=== PATIENT | female | born 1935 | race American Indian/Alaskan Native ===

== ENCOUNTER → 2018-06-21 | Outpatient (CLI) | payer OTHER, BC ==
[~2018-06-21] VITALS: Ht 172.7 cm; Wt 92.4 kg
[~2018-06-21] MED LIST: ADULT LOW DOSE81 MG PO; APAP500; BIOTIN10 MG PO; CELEBREX 200 M200 MG PO; CELEXA PO; COZAAR 25 MG TA25 M1 PO; COZAAR 50 MG TA50 M2 PO; CYMBALTA60 MG PO; DIOVAN40 MG PO; FISH OIL 1,0001 EAC5 PO; FLEXERIL PO; GLUCOPHAGE XR500 MG PO; HYDROCHLOROTHIA25 M1 PO; HYDROCODON-ACE1 EAC5 PO; HYDROCODON-ACE1 EAC7 PO; HYDROCODON-ACE1 EACH PO; HYDROCODONE-AP1 EAC6 PO; LIDODERM1 EACH TRANSDERM; MAXIDE PO; MAXZIDE-25 MG1 EACH PO; MEDROL DOSPAK21 TA1 PO; MEDROLDOSEPACK PO; MELOXICAM15 MG PO; MULTIVITAMINS; NORCO 5-325 TA1 EACH PO; NORFLEX100 MG PO; PERCOCET 10-321 EAC1 PO; PERCOCET 5-3251 EACH PO; TRAMADOL 50 MG50 MG PO
[2018-06-21 13:21] VITALS: BP 133/101
== END | disposition home or self-care (01) ==
LOC: PAIN 11:46
DX: M79.18 Myalgia, other site (principal); D64.9 Anemia, unspecified; Z88.8 Allergy status to other drugs, medicaments and biological substances; Z79.899 Other long term (current) drug therapy; Z90.710 Acquired absence of both cervix and uterus; Z98.890 Other specified postprocedural states

== ENCOUNTER → 2018-07-31 | Outpatient (CLI) | payer OTHER, BC ==
[~2018-07-31] VITALS: Ht 172.7 cm; Wt 92.8 kg
[~2018-07-31] MED LIST changes: +HYDROCODON-ACE1 EAC8 PO; +VOLTAREN50 MG PO
--- NOTE | ~2018-07-31 | HPC ---
[facility] [address] [place] [address] PAIN MANAGEMENT CONSULTATION Name: FLOR DOWLING Room #: REG Jose De Jesus Toro.#: [id number] Admission: 07/31/18 Attend Phys: Danna Castro MD Discharge: Date of : 39 Report #: [id number] THIS REPORT FOR: //name// CC: Danna Castro Physician staff BLANCA CARRASQUILLO DATE OF SERVICE: 07/31/2018 CHIEF COMPLAINT: Back pain was helped for about one week or so after the injection. HISTORY OF PRESENT ILLNESS: The patient is an 83-year-old female who has been followed in the pain clinic in the past because of chronic pain. She has had back problems. She has had myofascial pain in the lower portion of her back. She underwent trigger point injections to the affected area at the last visit. She noticed pain improvement for about a week. As you may recall, she has lost a significant amount of weight. Over the last few years, she has lost 100 pounds. She states that she continues to have pain, which is problematic at this point, some pain in the back area as well as some pain in the right groin area. Notes that sometimes after sitting for a prolonged period of time she notes some pain and discomfort. She is trying to net an item for a grandchild. Finds that she is unable to ____ for very long before onset of pain and discomfort. She has returned to the pain clinic for evaluation. She was given hydrocodone 7.5 mg tablets. Notes noticed that was beneficial to help with the pain. ALLERGIES: MORPHINE. CURRENT MEDICATIONS: Cymbalta and Lidoderm patches. PAIN CLINIC ASSESSMENT/PQRS: 1. History of osteoarthritis. The patient does have some arthritic changes in the lower portion of her back. It is not being treated for rheumatoid arthritis. 2. Height 5 feet 8 inches, weight 204 pounds, BMI is F31.81. 3. Vital signs: Blood pressure 155/87, pulse 83, respiratory rate 20, room air saturation is 100%. 4. Pain intensity /. 5. Fall risk. The patient has not fallen in the last 3 months. 6. Blood thinner. The patient is not on a blood thinning medication. 7. Hypertension. The patient has been treated for hypertension. 8. Opioid greater than 6 weeks. Risk assessment tool, low for opioid use and /. 9. Functional assessment tool 61/70. 10. Recreational drug use. The patient denies use of recreational drugs. [facility] [address] [place] [address] PAIN MANAGEMENT CONSULTATION Name: FLOR DOWLING [facility] [id number] Admission: 07/31/18 Attend Phys: Danna Castro MD Discharge: Date of : 37 Report #: [id number] 11. Tobacco: The patient has never smoked. 12. Alcohol: The patient denies use of alcoholic beverages. PHYSICAL EXAMINATION: GENERAL: The patient is a well-developed, well-nourished white female. She is obese. She appears her stated age. She is alert and oriented x 3. Her daughter is present. HEENT: Normocephalic, atraumatic. Extraocular eye muscles intact. Sclerae nonicteric. Mucous membranes are moist. NECK: Without adenopathy or JVD. MUSCULOSKELETAL: Upper extremity muscle strength is judged to be 5-/5 for the major muscle groups in the upper extremity. The patient without significant scoliosis, kyphosis or lordosis. The patient has a significant amount of skin laxity secondary to the great weight loss of over 100 pounds. 1. The patient has some pain and discomfort in the lower portion of her back near the right lower buttocks area. She has findings of some highly movable nodules/items on her skin. There is easily compressed. The easily mobile under the skin. They feel and seem to be as though they would be consistent with lipomas. This is one of the areas where the patient is having pain and discomfort in her back. Lower extremity muscle strength is judged to be 5-/5 for the lower extremities. IMPRESSION: 1. Back pain/myofascial pain helped with trigger points. 2. Three distinctive highly mobile masses in the right buttocks area (seen consistent with growing lipomas. 3. History of right sciatica. 4. History of insulin-dependent diabetes mellitus. 5. Anemia. 6. Hypertension. 7. Gallbladder disease. 7. Kidney disease. 8. Thyroid disease. 9. Stomach problems/Delonte en-Y. 10. Joint disease/arthritis in the knees and shoulders. RECOMMENDATION: At this juncture, the patient has noted some improvement with trigger point injections. That portion of her pain seemed to be myofascial. She does have pain and discomfort in the area of the highly mobile some nodules in the right low back area, which are tense feel as though they are highly like are highly likely to be lipomas. We have had a number of patients who have pain and discomfort and areas where lipomas were located. This area is where the patient is experiencing pain and discomfort. I think that she would gleaned significant improvement with the removal of lipomas. The patient also feels that the hydrocodone has been helpful. We will provide her with 2 hydrocodone tablets daily. She will call us in the near future. [address] [address] PAIN MANAGEMENT CONSULTATION Name: FLOR DOWLING Room #: REG JAGDEEP Gomez#: [id number] Admission: 07/31/18 Attend Phys: Danna Castro MD Discharge: Date of : 37 Report #: [id number] We would like to thank you for letting us participate in her care. We hope she continues to improve. By: [id number] Danna Castro MD /nt
[2018-07-31 09:03] VITALS: BP 155/87
--- NOTE | 2018-07-31 09:23 | NUR ---
Pain Clinic Assessment: 1. History of Osteoarthritis: Not Applicable History of Rheumatoid Arthritis: Not Applicable 2. Height: 5 ft. 8 in. 172.7 cm. Weight: 204.6 lb. oz. 92.806 kg. Patient's BMI: 31.1 3. Vital Signs: BP: 155/87 Pulse: 83 Resp: 20 Temp: 02 Sat: 100 ECG Mon: 4. Pain Intensity: 3-5 5. Fall Risk: Dizziness: N Needs help standing or walking: Y Fallen in the last 3 months: Y Fall risk comments: 6. Patient on Blood Thinner: None 7. History of Hypertension: Y 8. Opioid Therapy greater than 6 weeks: N Opiate Contract Signed: 9. Risk Assessment Tool Provided: LOW RISK 2/3 10. Functional Assessment Tool: 65/70 11. Recreational Drug Use: Never Drug Type: Tobacco Use: Never Smoker Tobacco Type: Amount or Packs/day: How Many Years: Alcohol Use: No Frequency: Quant:
== END ==
LOC: PAIN 07-26 13:15
DX: M17.0 Bilateral primary osteoarthritis of knee (principal); M54.41 Lumbago with sciatica, right side; M19.011 Primary osteoarthritis, right shoulder; M19.012 Primary osteoarthritis, left shoulder; G89.29 Other chronic pain; M79.18 Myalgia, other site; I10 Essential (primary) hypertension; D64.9 Anemia, unspecified; E11.9 Type 2 diabetes mellitus without complications; K82.9 Disease of gallbladder, unspecified; N28.9 Disorder of kidney and ureter, unspecified; E07.9 Disorder of thyroid, unspecified; K92.9 Disease of digestive system, unspecified; Z79.4 Long term (current) use of insulin; Z79.899 Other long term (current) drug therapy

== ENCOUNTER → 2019-01-29 | Outpatient (CLI) | payer OTHER, BC ==
[~2019-01-29] VITALS: Ht 172.7 cm; Wt 97.5 kg
[~2019-01-29] MED LIST changes: +MYRBETRIQ50 MG PO
--- NOTE | ~2019-01-29 | HPC ---
[facility] [address] [place] [address] PAIN MANAGEMENT CONSULTATION Name: FLOR DOWLING Room #: REG [facility] Cortez.#: [id number] Admission: 01/29/19 ������������������ Attend Phys: Danna Castro MD Discharge: ������������������ Date of : 39 Report #: [id number] THIS REPORT FOR: //name// CC: Danna CARRASQUILLO DATE OF SERVICE: 01/29/2019 CHIEF COMPLAINT: Pain in the right low back area. HISTORY: The patient is a very pleasant 83-year-old female who has been followed in the pain clinic. She has undergone in the past myofascial trigger point injections. She has found that those were helpful. She has also undergone epidural steroid injections in the past. She most recently was found to have lipomas in the lower portion of her back. This was located in the low back area. It was freely movable and represented tinnitus for her pain. She underwent surgery. After the removal of the lipoma, her pain improved. She now returns today with pain in the low back area and a mass similar to that which she had before. She would like an evaluation at this juncture in regards to whether it is myofascial or as a result of lumbar radicular pain. ALLERGIES: MORPHINE. CURRENT MEDICATIONS: Cymbalta and Lidoderm patches. PAIN CLINIC ASSESSMENT/PQRS: 1. History of osteoarthritis. The patient does have some arthritic changes in her lower back. She is not being treated for rheumatoid arthritis. 2. Height 5 feet 8 inches, weight 215 pounds, BMI is 32.7. 3. VITAL SIGNS: Blood pressure 130/85, pulse 89, respiratory rate is 20, room air saturation 96%. 4. Pain intensity 0/5 depending on her activity and whether or not she is resting against the mass. 5. Fall history: The patient has not fallen in the last 3 months. 6. Blood thinner. The patient is not on a blood thinning medication. 7. Hypertension. The patient is being treated for hypertension. 8. Opioid greater than 6 weeks. 9. Risk assessment tool, low for opioid use. 10. Functional assessment tool 65/70. 11. Recreational drug use, the patient denies. 12. Alcohol: The patient denies. 13. Tobacco: The patient has not smoked. PHYSICAL EXAMINATION: GENERAL: The patient is a well-developed, well-nourished white female. Appears her stated age. She is somewhat obese. She is alert and oriented x 3. Her [facility] [address] [place] [address] PAIN MANAGEMENT CONSULTATION Name: FLOR DOWLING [id number] Admission: 01/29/19 ������������������ Attend Phys: Danna Castro MD Discharge: ������������������ Date of : 39 Report #: [id number] affect is appropriate. Speech is fluent. HEENT: Normocephalic, atraumatic. Extraocular eye muscles intact. Sclerae nonicteric. Mucous membranes are moist. NECK: Without adenopathy or JVD. MUSCULOSKELETAL: Upper extremity muscle strength judged to be 5-/5 for the major muscle groups in the upper extremity. The patient has some excess skin. She has had a reasonably rapid weight loss and has significant laxity in this area. Overall, she has lost greater than 100 pounds HEART: Regular rate. ABDOMEN: Nontender. Bowel sounds present. The patient has some pain and discomfort in the right buttocks area. Palpation in this area does again revealed a highly movable mass. It is easily compressible. It consistent with examinations. I performed in the past where lipomas were noted. Lower extremity muscle strength judged to be 5-/5 for the major muscle groups. IMPRESSION: 1. Low back pain/myofascial pain improved with trigger point injection in the past, now with a mass in the low back area. 2. History of right sciatic nerve pain. 3. History of insulin-dependent diabetes mellitus. 4. Anemia. 5. Hypertension. 6. Gallbladder disease. 7. Kidney disease. 8. Thyroid disease; stomach problems status post Delonte-en-Y removal. 9. Joint disease/arthritis involving the knees and shoulders. RECOMMENDATIONS: We discussed treatment options with the patient. At this point, it appears that this finding is consistent with a low back mass. This mass is easily movable. Has about the consistency of a hard boiled egg. It seems well defined. I think that it is a lipoma. Pressure in this area does reproduce the pain, which the patient has been experiencing. We have had a discussion in regards to options. I think to have this mass removed would be reasonable. After removal of the mass, I felt that her pain will improve. The patient is going to see ____ in the [place] who is a colorectal surgeon. There is possibility of a stimulator placement to help with anal leak. This is scheduled for 02/03/2019. She will confer with her surgeon. They can then decide what would be appropriate and the appropriate timing should she have this mass removed. We would like to thank you for letting us participate in her care. We hope she continues to improve. ��������������������������������������������� ���������������������������������������� By: ��������������������������������������������� [id number] Danna Castro MD /nt
[2019-01-29 13:25] VITALS: BP 130/85
--- NOTE | 2019-01-29 13:44 | NUR ---
Pain Clinic Assessment: 1. History of Osteoarthritis: Not Applicable History of Rheumatoid Arthritis: Not Applicable 2. Height: 5 ft. 8 in. 172.7 cm. Weight: 215.0 lb. oz. 97.524 kg. Patient's BMI: 32.7 3. Vital Signs: BP: 130/85 Pulse: 89 Resp: 20 Temp: 02 Sat: 96 ECG Mon: 4. Pain Intensity: 0-5 5. Fall Risk: Dizziness: N Needs help standing or walking: Y Fallen in the last 3 months: N Fall risk comments: 6. Patient on Blood Thinner: None 7. History of Hypertension: Y 8. Opioid Therapy greater than 6 weeks: N Opiate Contract Signed: 9. Risk Assessment Tool Provided: LOW RISK 2/3 10. Functional Assessment Tool: 65/70 11. Recreational Drug Use: Never Drug Type: Tobacco Use: Never Smoker Tobacco Type: Amount or Packs/day: How Many Years: Alcohol Use: No Frequency: Quant:
== END ==
LOC: PAIN 09:17
DX: M54.5 Low back pain (principal); M79.18 Myalgia, other site; D64.9 Anemia, unspecified; I10 Essential (primary) hypertension; N28.9 Disorder of kidney and ureter, unspecified; K82.9 Disease of gallbladder, unspecified; E07.9 Disorder of thyroid, unspecified; M17.0 Bilateral primary osteoarthritis of knee; M19.012 Primary osteoarthritis, left shoulder; M19.011 Primary osteoarthritis, right shoulder

== ENCOUNTER → 2021-02-25 | Outpatient (CLI) | payer OTHER, BC ==
[~2021-02-25] VITALS: Ht 172.7 cm; Wt 108.9 kg
[2021-02-25 09:18] VITALS: BP 95/53
--- NOTE | 2021-02-25 09:38 | NUR ---
Pain Clinic Assessment: 1. History of Osteoarthritis: PT REPORTS SHE HAS IT EVERYWHERE History of Rheumatoid Arthritis: Not Applicable 2. Height: 5 ft. 8 in. 172.7 cm. Weight: 240.0 lb. oz. 108.864 kg. Patient's BMI: 36.5 3. Vital Signs: BP: 95/53 Pulse: 95 Resp: 18 Temp: 02 Sat: 95 ECG Mon: 4. Pain Intensity: 5 5. Fall Risk: Dizziness: Y Needs help standing or walking: Y Fallen in the last 3 months: N Fall risk comments: 6. Patient on Blood Thinner: None 7. History of Hypertension: Y 8. Opioid Therapy greater than 6 weeks: N Opiate Contract Signed: 9. Risk Assessment Tool Provided: LOW RISK 2/3 10. Functional Assessment Tool: 65/70 11. Recreational Drug Use: Never Drug Type: Tobacco Use: Never Smoker Tobacco Type: Amount or Packs/day: How Many Years: Alcohol Use: No Frequency: Quant:
== END ==
LOC: PAIN 07:21
PROVIDERS: ATTEND Anesthesiology Pain Medicine
DX: Z76.0 Encounter for issue of repeat prescription (principal); M54.5 Low back pain; I10 Essential (primary) hypertension; M19.90 Unspecified osteoarthritis, unspecified site; Z79.899 Other long term (current) drug therapy; Z79.891 Long term (current) use of opiate analgesic